=== PATIENT | male | born 1965 | race African-American/Black ===

== ENCOUNTER → 2024-12-28 | Outpatient (CLI) | payer BC ==
[2024-12-28 20:02] LABS: Basophils # (A) 0.04 X 10*3/uL (0.00-0.10); Basophils % (A) 0.7 %; Eosinophils # (A) 0.18 X 10*3/uL (0.04-0.35); Eosinophils % (A) 3.2 %; HCT 49.1 % (39.6-50.0); HGB 16.2 g/dL (13.0-17.0); Immature Grans, Automated 0.20 %; Lymphocytes # (A) 1.29 X 10*3/uL (0.90-5.00); Lymphocytes % (A) 22.8 %; MCH 28.7 pg (27.0-32.0); MCHC 33.0 g/dL (32.0-37.0); MCV 86.9 FL (80.0-97.0); Monocytes # (A) 0.42 X 10*3/uL (0.20-1.00); Monocytes % (A) 7.4 %; NRBC Per 100 WBC 0 X 10*3/uL (0.00-0.01); Neutrophils # (A) 3.71 X 10*3/uL (1.80-7.70); Neutrophils % (A) 65.7 %; Platelet Count 182 X 10*3/uL (140-440); RBC 5.65 X 10*6/uL (4.40-5.60); RDW 13.4 % (11.5-14.5); WBC 5.65 X 10*3/uL (4.50-10.00)
[2024-12-28 20:43] LABS: Iron 74.0 UG/DL (65-175); Total Iron Binding Capacity 365.0 UG/DL (228-460)
[2024-12-28 20:44] LABS: Ferritin 244.0 ng/mL (22.0-322.0); Vitamin B12 293.0 pg/mL (200.0-944.0)
== END | disposition home or self-care (01) ==
LOC: LABWHC1 12:47
PROVIDERS: ATTEND Family Medicine
DX: D75.89 Other specified diseases of blood and blood-forming organs (principal)
CPT/HCPCS: 36415; 82306; 82607; 82728; 82746; 83540; 83550; 84466; 85025; 85045